=== PATIENT | male | born 2000 | race Caucasian/White ===

== ENCOUNTER 2021-09-30 16:53 | Emergency (ER) | payer OTHER ==
[~2021-09-30] VITALS: Ht 177.8 cm; Wt 104.3 kg
[~2021-09-30 16:53] MED LIST: AMOXICILLI250 MG/51 PO; LORTABELXR PO; NOHOMEMEDICATIONS; PROAIR HFA8.5 GM IH
[2021-09-30 17:31] VITALS: BP 120/85
== END 2021-09-30 17:31 | disposition home or self-care (01) ==
LOC: M.ERS 16:53
DX: S93.401A Sprain of unspecified ligament of right ankle, initial encounter (principal); W01.0XXA Fall on same level from slipping, tripping and stumbling without subsequent striking against object, initial encounter; Y93.89 Activity, other specified; Y92.59 Other trade areas as the place of occurrence of the external cause; Y99.8 Other external cause status